=== PATIENT | male | born 1965 | race Caucasian/White ===

== ENCOUNTER 2017-07-20 17:01 | Emergency (ER) | payer MEDICARE ==
[~2017-07-20] VITALS: Ht 175.3 cm; Wt 100.0 kg
[~2017-07-20 17:01] MED LIST: ATENOLOL50 MG PO; FUROSEMIDE20 MG PO; GABAPENTIN300 MG PO; KLOR-CON 1010 ME1 PO; LOSARTAN POT50 MG PO; PRILOSEC40 MG PO; WARFARIN4 MG PO; ZOCOR20 M1 PO
[2017-07-20] MEDS ORDERED: ZPAK PO (17:50)
[2017-07-20 17:55] VITALS: BP 135/93
== END 2017-07-20 18:06 | disposition home or self-care (01) ==
LOC: ED 17:01
DX: T78.40XA Allergy, unspecified, initial encounter (principal); I10 Essential (primary) hypertension; G35 Multiple sclerosis; Z86.711 Personal history of pulmonary embolism; X58.XXXA Exposure to other specified factors, initial encounter